=== PATIENT | male | born 1955 | race Caucasian/White ===

== ENCOUNTER 2016-09-25 19:26 | Inpatient (IN) | payer OTHER, MEDICAID ==
--- NOTE | 2016-09-25 19:46 | EDPHY ---
H & P Stated Complaint: per ems pt at [facility], [facility] fall, c/o L knee pain Time Seen by Provider: 09/25/16 19:44 HPI/ROS: CHIEF COMPLAINT: Left knee pain HISTORY OF PRESENT ILLNESS: The patient presents to the ED via paramedics for evaluation of left knee pain. The patient lives at a long-term psychiatric care facility and reportedly tripped and fell onto his left knee. The patient developed pain, swelling and ecchymosis over the left patella. The patient did not strike his head or lose consciousness. The patient denies any headache, neck pain, chest pain, back pain or abdominal pain. The patient reports a prior history of a left hip fracture. He complains only of pain over his left patella. The patient denies any history of recent illness. The patient denies specific complaints of fever, cough or congestion. REVIEW OF SYSTEMS: A comprehensive 10 point review of systems is otherwise negative aside from elements mentioned in the history of present illness. Source: Patient Exam Limitations: No limitations - Medical/Surgical History Hx Asthma: No Hx Chronic Respiratory Disease: Yes Hx Diabetes: No Hx Cardiac Disease: Yes Hx Renal Disease: No Hx Cirrhosis: No Hx Alcoholism: No Hx HIV/AIDS: No Hx Splenectomy or Spleen Trauma: No Other PMH: cva, tbi, bph, anxiety, chronic bronchitis, arthritis, L ankle contracture, hypertension - Social History Smoking Status: Current every day smoker - Physical Exam Exam: General Appearance: Elderly male, no acute distress Head: Atraumatic Eyes: Pupils equal, round, reactive ENT, Mouth: No hemotympanum, no oral trauma Neck: Nontender, trachea midline Respiratory: No chest wall tender, subcutaneous air, lungs clear bilaterally Cardiovascular: Regular rate and rhythm Abdomen: Abdomen is soft and nontender, pelvis stable Skin: No lacerations, No abrasion Back: No midline T/L/S pain Extremities: Tenderness to palpation, soft tissue swelling and hematoma noted over left patella, bilateral lower extremity edema, brace in the left upper extremity Neurological: Alert and oriented x2, likely baseline, 5/5 strength all 4 extremities, cranial nerves 2-12 intact Constitutional: Initial Vital Signs Temperature (C) 37.2 C 09/25/16 19:33 Heart Rate 61 09/25/16 19:33 Respiratory Rate 18 09/25/16 19:33 Blood Pressure 195/110 H 09/25/16 19:33 O2 Sat (%) 93 09/25/16 19:33 O2 Delivery Mode Room Air Allergies/Adverse Reactions: oxycodone HCl [From OxyContin] Allergy (Verified 09/25/16 19:43) tapentadol [From Nucynta] Allergy (Verified 09/25/16 19:43) verapamil [Verapamil] Allergy (Verified 09/25/16 19:43) HAYFEVER Allergy (Uncoded 09/25/16 19:43) POLLEN Allergy (Uncoded 09/25/16 19:43) Home Medications: Medication Instructions Recorded CARBAMAZEPINE [Carbamazepine Xr] 400 mg PO 05/07/10 Divalproex Sodium [Divalproex 500 mg PO 05/07/10 Sodium Er] Dulcolax 05/07/10 Fleets Enema [Fleet Enema] 133 ml UT 05/07/10 Gabapentin 100 mg PO 05/07/10 Gabapentin 100 mg PO 05/07/10 Guaifenesin [Robitussin] 10 ml PO PRN 05/07/10 Hydrocodone Bit/Acetaminophen 1 each PO PRN 05/07/10 [Vicodin 5-500 Tablet] IBUPROFEN 800 mg PO PRN 05/07/10 LORazepam [Ativan] 0.5 mg PO 05/07/10 Lactulose 10 gm PO 05/07/10 Lorazepam [Ativan] 0.75 mg PO 05/07/10 MAGNESIUM HYDROXIDE [Milk Of 400 mg PO 05/07/10 Magnesia] MORPHINE SULFATE [Avinza] 45 mg PO 05/07/10 Melatonin/Pyridoxine [Melatonin 3 1 each PO 05/07/10 Mg Tablet] Oxiconazole Nitrate [Oxistat] 0 ml TP 05/07/10 Oxygen-Air Delivery Systems 05/07/10 [OXYGEN] PERPHENAZINE [Perphenazine 4mg] 2 mg PO 05/07/10 POTASSIUM CHLORIDE 10 meq PO 05/07/10 PROPRANOLOL HCL 20 mg PO 05/07/10 Prochlorperazine Maleate 10 mg PO 05/07/10 [Compazine] Ramipril 1.25 mg PO 05/07/10 Sennosides/Docusate Sodium [Senna 1 each PO 05/07/10 S Tablet] Sertraline HCl [Zoloft] 100 mg PO DAILY 05/07/10 lamoTRIgine [Lamictal Xr] 100 mg PO 05/07/10 Medical Decision Making - Diagnostics EKG Interpretation: EKG: Complete interpretation has been separately recorded in the [facility] archive. Summary impression: Sinus rhythm, nonspecific changes noted Imaging Results: Left knee x-ray: Displaced patellar fracture, images reviewed by myself. ED Course/Re-evaluation: The patient presents to the ED with left knee trauma evidence with pain and swelling and decreased range of motion. The patient was taken for an x-ray which demonstrates a closed patellar fracture which is 100% displaced. The patient was placed in a knee immobilizer. The patient will require admission to the hospital for PT OT and Orthopedic surgery evaluation. Patient was admitted to the medicine service under the care of Dr. Jessee Head. I consulted with Dr. Tiffani Mac from Orthopedic surgery who will see the patient consultation. The patient did have screening laboratory sent. Differential Diagnosis: Differential diagnosis considered includes patella fracture, knee dislocation, prepatellar ecchymosis/contusion, neurovascular injury - Data Points Laboratory Results: Laboratory Results 09/25/16 20:14 09/25/16 20:14 09/25/16 09/25/16 09/25/16 20:14 20:14 20:14 WBC 8.73 10^3/uL 10^3/uL (3.80-9.50) RBC 5.02 10^6/uL 10^6/uL (4.40-6.38) Hgb 15.3 g/dL g/dL (13.7-17.5) Hct 45.0 % % (40.0-51.0) MCV 89.6 fL fL (81.5-99.8) MCH 30.5 pg pg (27.9-34.1) MCHC 34.0 g/dL g/dL (32.4-36.7) RDW 12.5 % % (11.5-15.2) Plt Count 157 10^3/uL 10^3/uL (150-400) MPV 9.7 fL fL (8.7-11.7) Neut % (Auto) 71.5 % % (39.3-74.2) Lymph % (Auto) 17.2 % % (15.0-45.0) Garvin % (Auto) 7.4 % % (4.5-13.0) Eos % (Auto) 3.0 % % (0.6-7.6) Baso % (Auto) 0.6 % % (0.3-1.7) Nucleat RBC Rel Count 0.0 % % (0.0-0.2) Absolute Neuts (auto) 6.24 10^3/uL 10^3/uL (1.70-6.50) Absolute Lymphs (auto) 1.50 10^3/uL 10^3/uL (1.00-3.00) Absolute Monos (auto) 0.65 10^3/uL 10^3/uL (0.30-0.80) Absolute Eos (auto) 0.26 10^3/uL 10^3/uL (0.03-0.40) Absolute Basos (auto) 0.05 10^3/uL 10^3/uL (0.02-0.10) Absolute Nucleated RBC 0.00 10^3/uL 10^3/uL (0-0.01) Immature Gran % 0.3 % % (0.0-1.1) Immature Gran # 0.03 10^3/uL 10^3/uL (0.00-0.10) PT 13.3 SEC SEC (12.0-15.0) INR 1.02 (0.83-1.16) APTT 26.9 SEC SEC (23.0-38.0) Sodium 129 mEq/L L mEq/L (134-144) Potassium 4.0 mEq/L mEq/L (3.5-5.2) Chloride 92 mEq/L L mEq/L (97-110) Carbon Dioxide 28 mEq/l mEq/l (22-31) Anion Gap 9 mEq/L mEq/L (8-16) BUN 10 mg/dL mg/dL (7-23) Creatinine 0.7 mg/dL mg/dL (0.7-1.3) Estimated GFR > 60 Glucose 101 mg/dL H mg/dL (70-100) Calcium 9.4 mg/dL mg/dL (8.5-10.4) Departure - Departure Disposition: [facility] Inpatient Acute Clinical Impression: Left patella fracture, Traumatic brain injury, Chronic hyponatremia Condition: Fair Referrals: Patient,NotPresent [Unknown] - As per Instructions
[2016-09-25 20:23] LABS: % IMMATURE GRANULYOCYTES 0.3 % (0.0-1.1); ABSOLUTE IMMATURE GRANULOCYTES 0.03 10^3/uL (0.00-0.10); ADD DIFF? NO; ADD MORPH? NO; ADD SCAN? NO; ATYPICAL LYMPHOCYTE FLAG 0 (0-99); FRAGMENT RBC FLAG 0 (0-99); HEMOGLOBIN 15.3 g/dL (13.7-17.5); LEFT SHIFT FLG 0 (0-99); LIPEMIA HEMOLYSIS FLAG 90 (0-99); MEAN CELL HEMOGLOBIN 30.5 pg (27.9-34.1); MEAN CELL VOLUME 89.6 fL (81.5-99.8); MEAN PLATELET VOLUME 9.7 fL (8.7-11.7); PLATELET CLUMPS FLAG 0 (0-99); PLATELET COUNT 157 10^3/uL (150-400); RED BLOOD CELL COUNT 5.02 10^6/uL (4.40-6.38); RED CELL DISTRIBUTION WIDTH 12.5 % (11.5-15.2)
--- NOTE | 2016-09-25 20:29 | CPEKG ---
Heart Rate: 64 RR Interval: 938 P-R Interval: 204 QRSD Interval: 100 QT Interval: 420 QTC Interval: 434 P [place]: 38 QRS [place]: 73 T Wave [place]: 82 EKG Severity - ABNORMAL ECG - EKG Impression: SINUS RHYTHM Electronically Signed By: Elias Slater 25-Sep-2016 21:02:27
[2016-09-25 20:33] LABS: ANION GAP 9 mEq/L (8-16); CALCIUM 9.4 mg/dL (8.5-10.4); CARBON DIOXIDE 28 mEq/l (22-31); CHLORIDE 92 mEq/L (97-110); CREATININE 0.7 mg/dL (0.7-1.3); GLOMERULAR FILTRATION RATE > 60; GLUCOSE 101 mg/dL (70-100); SODIUM 129 mEq/L (134-144)
[2016-09-25 20:38] LABS: INR 1.02 (0.83-1.16); PROTIME(PATIENT) 13.3 SEC (12.0-15.0)
[2016-09-25 20:39] LABS: APTT 26.9 SEC (23.0-38.0)
[2016-09-25] MEDS ORDERED: NICOTINE 14 MG/24 HR PATCH TD ONE (21:15)
[2016-09-25] MEDS ORDERED: LACTULOSE 10 GM PO SCH (21:15)
[2016-09-25] MEDS ORDERED: ZOLPIDEM TARTRATE 5 MG TAB PO PRN (21:26)
[2016-09-25] MEDS ORDERED: ONDANSETRON 4 MG/2 ML VIAL IVP PRN (21:26)
[2016-09-25] MEDS ORDERED: ALBUTEROL 3 ML DEYVIAL IH PRN (21:26)
[2016-09-25] MEDS ORDERED: ONDANSETRON DISINTEGRATING 4 MG TAB PO PRN (21:26)
--- NOTE | 2016-09-25 21:34 | PDGENHP ---
History and Physical History and Physical: CC:Left knee pain after a fall HISTORY: The history I have comes partly from speaking to the patient and partly from through the emergency room staff to go call from [facility]. It should be noted that the patient has a chronic mental health disorder that I do not have a specific diagnosis for but he does have some degree of psychosis here today and some details of his history may be potentially erroneous. This gentleman lives at [facility]. While there today he says someone open Door in front of him that he was not expecting and he fell forward landing on his left knee with immediate pain. he is brought into the emergency room as he was unable to walk and is found to have a transverse fracture with displacement of the left patella. There are no evidence of other injury is no other acute pain. He did not hit his head, was not having a fainting spell. Before this injury today he says he was in his usual health no recent fevers respiratory symptoms, chest pains, leg pains, digestive symptoms or other acute abnormalities. ROS: A comprehensive 10 system review revealed no other significant findings . He does deny any symptoms of heart or lung disease but does admit to having been a smoker. PAST MEDICAL HISTORY: He denies any history of thromboembolic disease or anesthetic complications. Mental health disorder with chronic psychosis, diagnosis unknown to me at this time anxiety disorder Tobacco abuse Traumatic brain injury Seizure disorder Prostatic hypertrophy Metacarpal fracture Patient states that he also had a hip fracture and a left arm injury in the but I do not have any records related to these He also states that he has had coronary disease and stents placed but he describes this in a way that does not really make sense, and we have no records that he has any history of heart disease with his primary care physician , and he is not on any cardiac medicines. FAMILY MEDICAL HISTORY: I am unable to get a consistent story from him about family medical history SOCIAL HISTORY: he is disabled by his mental health illness and his closed head injury. He lives at [facility]. It sounds like he smokes cigarettes. He tells me that he has been an alcoholic but sober for the past year. No street drugs. 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 MEDICATIONS: The patients list has been reconciled by our clinical pharmacist in the EMR. I have reviewed the list and ordered appropriate medicines. 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 This may be due to the discomfort of his knee injury or there may be other issues leading to this hypertension # Chronic mental health disorder with psychosis, appears to be at his baseline with some delusional thought processes at this time # Chronic tobacco abuser and his lungs sound to me like he probably has COPD but he says he does not have this diagnosis and he is not prescribed any inhaled medicines # Questionable history of heart disease. I have no records to detail any of this if he has had heart disease. There is some old visits from before 2009 in our system that I am not able to get to as the old record system is not available to me tonrosalie. He does not give any history of cardiac symptoms on review of systems and he is not in heart failure, so at this point there is no need for further cardiac evaluation other than in the EKG prior to proceeding with surgery. # hyponatremia, approximately euvolemic by examination, of uncertain duration or etiology. There are no old laboratory data available at this moment PLANS: - admission hospital -Dr. Mac has been consulted from Orthopedics for repair of his patella -Fall risk precautions -I have ordered some hydralazine for p.r.n. use for hypertension but will see how his blood pressure does after better pain control -Nicotine patches -DVT prophylaxis -We will make him NPO after midnight tonight in case he gets on the surgery schedule for tomorrow -Check urine sodium studies to see if this shows light on his hyponatremia - will attempt to get records from [facility] where he lives to see if they have any previous chemistry studies -Gentle hydration with saline overnight as he will be NPO and recheck sodium in the morning, I have reviewed the patient's case in detail with Dr. Landry Slater
[2016-09-25] MEDS: hydrALAZINE 25 MG TAB PO PRN (21:58)
[2016-09-25] MEDS ORDERED: HYDROmorphONE/DILAUDID 1 MG/ML SYR ONE (22:38)
[2016-09-25] MEDS: HYDROmorphONE/DILAUDID 1 MG/ML SYR IVP PRN (22:41)
[2016-09-26] MEDS: NS 1,000 ML IV SCH ×2 (00:07→22:14)
[2016-09-26] MEDS: CALCIUM CARB W/VIT D 500 MG TAB PO SCH ×4 (00:08→22:32)
[2016-09-26] MEDS: HYDROmorphONE/DILAUDID 2 MG TAB PO PRN ×4 (00:08→22:31)
[2016-09-26] MEDS: clonazePAM 0.5 MG TAB PO SCH ×3 (00:09→22:30)
[2016-09-26] MEDS: LACTULOSE 20 GM/30 ML UDCUP PO SCH ×3 (00:28→22:32)
[2016-09-26] MEDS: MENTHOL TP SCH ×4 (00:33→22:44)
[2016-09-26] MEDS: METHYL SALICYLATE TP SCH ×4 (00:33→22:44)
[2016-09-26 04:36] LABS: % IMMATURE GRANULYOCYTES 0.3 % (0.0-1.1); ABSOLUTE IMMATURE GRANULOCYTES 0.03 10^3/uL (0.00-0.10); ADD DIFF? NO; ADD MORPH? NO; ADD SCAN? NO; ATYPICAL LYMPHOCYTE FLAG 0 (0-99); FRAGMENT RBC FLAG 0 (0-99); HEMATOCRIT 44.3 % (40.0-51.0); LEFT SHIFT FLG 0 (0-99); LIPEMIA HEMOLYSIS FLAG 90 (0-99); MEAN CELL HEMOGLOBIN 30.4 pg (27.9-34.1); MEAN CELL HEMOGLOBIN CONCENTR. 33.9 g/dL (32.4-36.7); MEAN CELL VOLUME 89.7 fL (81.5-99.8); MEAN PLATELET VOLUME 9.2 fL (8.7-11.7); PLATELET CLUMPS FLAG 0 (0-99); PLATELET COUNT 175 10^3/uL (150-400); RED BLOOD CELL COUNT 4.94 10^6/uL (4.40-6.38); RED CELL DISTRIBUTION WIDTH 12.4 % (11.5-15.2)
[2016-09-26 05:03] LABS: ANION GAP 11 mEq/L (8-16); CALCIUM 9.4 mg/dL (8.5-10.4); CARBON DIOXIDE 28 mEq/l (22-31); CHLORIDE 95 mEq/L (97-110); CREATININE 0.6 mg/dL (0.7-1.3); GLOMERULAR FILTRATION RATE > 60; GLUCOSE 103 mg/dL (70-100); POTASSIUM 3.9 mEq/L (3.5-5.2); SODIUM 134 mEq/L (134-144)
[2016-09-26] MEDS: IPRATROPIUM/ALBUTEROL 3 ML DEYVIAL IH SCH ×4 (08:43→21:27)
[2016-09-26] MEDS ORDERED: POTASSIUM CHLORIDE PO SCH (09:00)
[2016-09-26] MEDS ORDERED: SODIUM CL PO SCH (09:00)
[2016-09-26] MEDS ORDERED: NON-FORMULARY NEW DRUG (Propranolol Hcl [Inderal Xl] 80 MG) PO SCH (09:00)
[2016-09-26] MEDS: PROPRANOLOL SR 80 MG CAP PO SCH (09:27)
[2016-09-26] MEDS: LISINOPRIL 10 MG TAB PO SCH (09:27)
[2016-09-26] MEDS: OLANZapine 10 MG TAB PO SCH (09:27)
[2016-09-26] MEDS: DULoxetine 60 MG CAP PO SCH (09:27)
[2016-09-26] MEDS: ENOXAPARIN 40 MG/0.4 ML SYR SC SCH (09:29)
[2016-09-26] MEDS: SENNOSIDES/DOCUSATE SODIUM TAB PO SCH ×2 (09:29→22:31)
[2016-09-26] MEDS: ACETAMINOPHEN 325 MG TAB PO PRN ×2 (09:44→14:46)
[2016-09-26] MEDS: hydrALAZINE 25 MG TAB PO PRN (09:45)
--- NOTE | 2016-09-26 12:23 | HOSPPROG ---
Hospitalist Progress Note Assessment/Plan: 61y male with mechanical fall. First encounter, chart reviewed. # Transfers left patellar fracture will need repair Dr Mac to repair. pt NPO # Hypertension, severe. This may be due to the discomfort of his knee injury or there may be other issues leading to this hypertension will cont to follow elevated today # Chronic mental health disorder with psychosis, appears to be at his baseline with some delusional thought processes at this time will return to [facility] cont home meds # Chronic tobacco abuser with probably has COPD cont support # hyponatremia, approximately euvolemic resolved with hydration # DVT prophylaxis defer to postop setting #Dispo will return to uribe vis when able follow labs and vs Subjective: Arousable. C/O knee pain. Objective: Vital Signs Temp Pulse Resp BP Pulse Ox 36.8 C 65 16 143/84 H 95 09/26/16 11:20 09/26/16 11:20 09/26/16 11:20 09/26/16 11:20 09/26/16 11:38 Laboratory Results 09/26/16 04:27 09/26/16 04:27 09/25/16 09/26/16 09/27/16 05:59 05:59 05:59 Intake Total 420 Output Total 700 700 Balance -280 -700 PT 13.3 SEC (12.0-15.0) 09/25/16 20:14 INR 1.02 (0.83-1.16) 09/25/16 20:14 - Physical Exam Constitutional: no apparent distress, appears nourished, uncomfortable Eyes: PERRL, anicteric sclera, EOMI Ears, Nose, Mouth, Throat: moist mucous membranes, hearing normal, ears appear normal Cardiovascular: regular rate and rhythym, No JVD, No edema Respiratory: no respiratory distress, no rales or rhonchi, reduced air movement Gastrointestinal: normoactive bowel sounds, No tenderness, No ascites Skin: warm, normal color, No erythema Musculoskeletal: pain with ROM, muscular tenderness, generalized weakness Psychiatric: not anxious, not encephalopathic, poor insight, poor judgement ICD10 Worksheet Patient Problems: Problems Problem Status Onset Left patella fracture Acute Traumatic brain injury Acute Chronic hyponatremia Acute
[2016-09-26] MEDS ORDERED: BUPIVACAINE/EPI 0.5% 30 ML SDV ONE (17:36)
[2016-09-26] MEDS ORDERED: POLYMYXIN B SULFATE 500,000 UNIT/10 ML SYR IRR ONE (17:37)
[2016-09-26] MEDS ORDERED: BACITRACIN 50,000 UNITS/10 ML SYR IRR ONE (17:37)
--- NOTE | 2016-09-26 17:42 | PDANEPAE ---
ANE History of Present Illness Patellar fracture ANE Past Medical History - Cardiovascular History Hx Hypertension: Yes - Pulmonary History Hx COPD: Yes Hx Oxygen in Use at Home: No Hx Sleep Apnea: No Sleep Apnea Screening Result - Last Documented: Positive - Endocrine History Hx Diabetes: No - Neurological & Psychiatric Hx Hx Neurological and Psychiatric Disorders: Yes ANE Review of Systems - Systems Neurological: Reports: seizure, other (History of brain injury) ANE Patient History - Allergies Allergies/Adverse Reactions: oxycodone HCl [From OxyContin] Allergy (Verified 09/25/16 19:43) tapentadol [From Nucynta] Allergy (Verified 09/25/16 19:43) verapamil [Verapamil] Allergy (Verified 09/25/16 19:43) HAYFEVER Allergy (Uncoded 09/25/16 19:43) POLLEN Allergy (Uncoded 09/25/16 19:43) - Home Medications Home medications: home medication list seen and reviewed Home Medications: Calcium Carb W/Vit D [Calcium Carb W/Vit D 500/200 (*)] 500 mg PO TID 09/25/16 [ Last Taken 09/25/16] DULoxetine [Cymbalta 60 MG (*)] 60 mg PO DAILY 09/25/16 [Last Taken 09/25/16] Ergocalciferol [Vitamin D2 (*)] 50,000 unit PO Q30D 09/25/16 [Last Taken ] Lactulose [Constulose] 10 gm PO BID 09/25/16 [Last Taken 09/25/16] Lisinopril [Zestril 10 mg (*)] 10 mg PO DAILY 09/25/16 [Last Taken 09/25/16] Methyl Salicylate/Menthol [Muscle Rub Cream] 1 merle TP TID 09/25/16 [Last Taken 09/25/16] OLANZapine [Zyprexa] 15 mg PO DAILY 09/25/16 [Last Taken 09/25/16] Quincy-3 Fatty Acids [Fish Oil 1000 mg (*)] 2,000 mg PO HS 09/25/16 [Last Taken 09/24/16] Propranolol HCl [Inderal Xl] 80 mg PO DAILY 09/25/16 [Last Taken 09/25/16] Sennosides/Docusate Sodium [Senna-Docusate Sodium Tablet] 2 each PO BID [Last Taken 09/25/16] Sodium Cl/Potassium Chloride [THERMOTABS TABLET] 1 each PO BID 09/25/16 [Last Taken 09/25/16] Tamsulosin HCl [Flomax 0.4 MG (*)] 0.4 mg PO HS 09/25/16 [Last Taken 09/24/16] carBAMazepine ER [Carbatrol (*)] 200 mg PO HS 09/25/16 [Last Taken 09/24/16] clonazePAM [Klonopin (*)] 0.5 mg PO BID 09/25/16 [Last Taken 09/25/16 09:00] - NPO status NPO Since - Liquids (Date): 09/26/16 NPO Since - Liquids (Time): 00:01 NPO Since - Solids (Date): 09/26/16 NPO Since - Solids (Time): 00:01 - Anes Hx Anes Hx: no prior problems - Smoking Hx Smoking Status: Current every day smoker ANE Labs/Vital Signs - Labs Result Diagrams: 09/26/16 04:27 09/26/16 04:27 - Vital Signs Blood Pressure: 137/74 Heart Rate: 64 Respiratory Rate: 16 O2 Sat (%): 93 Height: 172.72 cm Weight: 90.945 kg ANE Physical Exam - Airway Neck exam: decreased ROM Mallampati Score: Class 2 Mouth exam: dentures - Pulmonary Pulmonary: inspiratory crackles - Cardiovascular Cardiovascular: regular rate and rhythym - ASA Status ASA Status: III, E ANE Anesthesia Plan Anesthesia Plan: GA w LMA (Pt's DRN status discussed with over phone. There is a signed no CPR on the chart. 's understanding is that we will treat any cardiac issues caused by anesthesiabut will not do CPR or aggressive resuscitation.)
[2016-09-26] MEDS ORDERED: ceFAZolin 2 GM/DEXTROSE 100 ML IV ONE (18:05)
--- NOTE | 2016-09-26 18:06 | PDHPUP ---
History & Physical Update H&P update statement: This history and physical update is based on an assessment of the patient which was completed after admission or registration (within 24 hours), but prior to the surgery/procedure. H&P update: H&P reviewed & patient examined, no change in patient's condition since H&P completed
[2016-09-26] MEDS ORDERED: fentaNYL 100 MCG/2 ML INJ ONE (18:24)
[2016-09-26] MEDS ORDERED: PROPOFOL 200 MG/20 ML VIAL ONE (18:24)
[2016-09-26] MEDS ORDERED: LR 1,000 ML IV SCH ×2 (18:30→20:00)
[2016-09-26] MEDS ORDERED: fentaNYL 100 MCG/2 ML INJ IVP PRN (18:59)
[2016-09-26] MEDS ORDERED: ONDANSETRON 4 MG/2 ML VIAL IVP PRN (18:59)
[2016-09-26] MEDS ORDERED: NALOXONE HCL 0.4 MG/ML INJ IVP PRN (18:59)
[2016-09-26] MEDS ORDERED: epHEDrine SULFATE 10 MG/ML SYR ONE (19:11)
[2016-09-26] MEDS ORDERED: ONDANSETRON 4 MG/2 ML VIAL ONE (19:34)
[2016-09-26] MEDS ORDERED: PROMETHAZINE HCL 25 MG SUPPR PR PRN (19:52)
[2016-09-26] MEDS ORDERED: METOCLOPRAMIDE 10 MG/2 ML VIAL IVP PRN (19:52)
[2016-09-26] MEDS ORDERED: POLYETHYLENE GLYCOL 3350 17 GM PKT PO PRN (19:52)
[2016-09-26] MEDS ORDERED: DIPHENOXYLATE/ATROPINE LOMOTIL 1 TAB PO PRN (19:52)
[2016-09-26] MEDS ORDERED: TEMAZEPAM 15 MG CAP PO PRN (19:52)
[2016-09-26] MEDS ORDERED: PROMETHAZINE HCL 25 MG/ML INJ IVP PRN (19:52)
[2016-09-26] MEDS ORDERED: PHARMACY PAIN CONSULT 1 EA MISC PRN (19:52)
[2016-09-26] MEDS ORDERED: diphenhydrAMINE 25 MG CAP PO PRN (19:52)
--- NOTE | 2016-09-26 19:52 | POSTOPPROG ---
Post Op Note Date of Operation: 09/26/16 Surgeon: Tiffani Mac Anesthesiologist: nikita Anesthesia: GET(General Endotracheal) Pre-op Diagnosis: l patella fx Procedure: orif l patella with fluoro Inf/Abcess present in the surg proc area at time of surgery?: No Depth: Deep Incisional (Fascial) EBL: 100-500
--- NOTE | 2016-09-26 19:52 | GCON ---
[f rep st] CONSULTATION DATE OF CONSULTATION: 09/26/2016 CURRENT COMPLAINT: Left leg weakness. HISTORY OF PRESENT ILLNESS: The patient is a 61-year-old male, who is in a chronic health care faci lity secondary to a brain injury. He does not remember the exact mechanism of fall, but notes that he fell at the care facility, landed directly on the knee, had inability to walk afterwards, was see n in the emergency room, diagnosed with a displaced patellar fracture. He was admitted secondary to the care facility stating that they had difficulty being able to take care of him afterwards. Once it was decided that he would be staying in the hospital instead of going home, it was decided to do surgery while he remained an inpatient. PHYSICAL EXAM: Patient is grossly neurologically intact into the dorsal, lateral, and plantar porti ons of the foot. He has no active extension across the knee and he has a palpable gap at the anteri or portion of the knee. IMAGING: X-ray exam reveals a displaced fracture of the patella. ASSESSMENT AND PLAN: The patient is status post left patella fracture. Discussion was had with the patient's , secondary to the patient's lack of understanding, and she agrees to allow him to perez ve surgery in order to fix the patella. /[id number]/MODL
--- NOTE | 2016-09-26 20:06 | POSTANESTH ---
Post Anesthetic Evaluation Cardiovascular Status: Normal, Stable Respiratory Status: Normal, Stable Level of Consciousness/Mental Status: Other, See Comment (Pre-op pt confused and not oriented) Pain Control: Adequate, Prn Tx Ordered Nausea/Vomiting Control: Adequate, Prn Tx Ordered Complications Possibly Related to Anesthesia: None Noted
--- NOTE | 2016-09-26 20:37 | GOP ---
[f rep st] OPERATIVE REPORT DATE OF OPERATION: 09/26/2016 SURGEON: Tiffani Mac MD ANESTHESIA: Endotracheal intubation. PREOPERATIVE DIAGNOSIS: Left patellar fracture. POSTOPERATIVE DIAGNOSIS: Left patellar fracture. PROCEDURE PERFORMED: Open reduction internal fixation of left patella with fluoroscopy. FINDINGS: INDICATIONS: This is a 61-year-old male, who fell at his nursing care facility. He was seen in the emergency room, diagnosed with a patellar fracture. He was admitted for pain control and psychosoc ial reasons. He was brought to the operating room as soon as it was clear that he was not going to be sent back to his care facility. DESCRIPTION OF PROCEDURE: The patient was brought to the operating room after the left side had bee n identified as the correct side by the patient, nurse and physician. Once in the operating room, h e was placed under general anesthesia using endotracheal intubation once asleep. A tourniquet was pl aced around the upper portion of the left thigh, and the left lower extremity sterilely prepped and draped in usual fashion using GSI solution. Once prepped and draped, limb was exsanguinated, tourniq uet inflated to 250 mmHg. Linear incision was made on the anterior portion of the knee extending fr om the tibial tubercle to just past the superior pole of the patella. Sharp dissection was carried down through the skin and subcutaneous layers until reaching the patellar retinaculum which had been torn, allowing the blood to come out from the intraarticular portion of the knee. The knee was then thoroughly irritated with antibiotic solution in order to get rid of the blood clots and blood seen within the suprapatellar pouch and the medial and lateral gutters. The hematoma off the end of the fracture fragments were cleaned off and thoroughly irrigated. The bone was then reduced and held t ogether with a pointed reduction clamp. Once in place, 2 sets of threaded K-wires were passed acros s the patella in a [id number] direction. Position was checked under fluoroscopy. Once note d to be in proper position, the wires were measured for length and then overdrilled with a 2.5 mm ca nnulated drill. Once in place, the appropriate 3.5 mm partially-threaded screws were placed over the guidewires. Once catching adequate bone, the guidewires were removed, at which point 18-gauge wire was woven through the screw sites in a fashion to create a figure-of-8 cerclage technique with the 1 8-gauge wire. Two loops were made with the wire. They were cinched tight. Once tightened, position was checked under fluoroscopy and noted to have good position of the hardware and cinching of the ac tual fracture itself. The wires were cut short, were bent to be sitting as close to the bone as pos sible. The wound was again thoroughly irrigated with antibiotic solution, was closed in layers to i nclude 0 Vicryl suture for the knee retinaculum and the paratenon overlying the patella, 0 Vicryl an d 2-0 Vicryl suture for subcutaneous layers, and a 3-0 V-Loc suture in a running subcuticular stitch for the skin. Tourniquet was released at 48 minutes. 20 cc of Marcaine was infused into the knee joint and around the actual patella itself. The wound was then dressed with Steri-Strips, Xeroform, 4 x 4's, Webril. The leg was completely undraped in the operating room. Tourniquet removed from the thigh and an Seymour wrap placed around the knee. The left lower extremity was then placed within a zenon g-leg immobilizer locked at 0 degrees. The patient was then woken up, extubated, transferred onto a stretcher, and sent to recovery room in good condition. TOURNIQUET TIME: 48 minutes. /[id number]/MODL
[2016-09-26] MEDS: ceFAZolin 2 GM/DEXTROSE 100 ML IV SCH (22:14)
[2016-09-26] MEDS: FAMOTIDINE 20 MG TAB PO SCH (22:29)
[2016-09-26] MEDS: ACETAMINOPHEN 325 MG TAB PO SCH (22:30)
[2016-09-26] MEDS: carBAMazepine ER 200 MG CAP PO SCH (22:31)
[2016-09-26] MEDS: OMEGA-3 FATTY ACIDS 1,000 MG CAP PO SCH (22:31)
[2016-09-26] MEDS: TAMSULOSIN HCL 0.4 MG CAP PO SCH (22:32)
[2016-09-26] MEDS: SODIUM CL PO SCH (22:44)
[2016-09-26] MEDS: POTASSIUM CHLORIDE PO SCH (22:44)
[2016-09-27] MEDS: traMADol 50 MG TAB PO SCH ×5 (00:20→23:48)
[2016-09-27] MEDS: HYDROmorphONE/DILAUDID 1 MG/ML SYR IVP PRN (00:23)
[2016-09-27] MEDS: ACETAMINOPHEN 325 MG TAB PO SCH ×7 (03:51→23:11)
[2016-09-27] MEDS: HYDROmorphONE/DILAUDID 2 MG TAB PO PRN ×4 (03:56→20:14)
[2016-09-27 04:58] LABS: HEMATOCRIT 42.1 % (40.0-51.0)
[2016-09-27] MEDS: ceFAZolin 2 GM/DEXTROSE 100 ML IV SCH (05:24)
[2016-09-27] MEDS: IPRATROPIUM/ALBUTEROL 3 ML DEYVIAL IH SCH ×4 (06:28→20:41)
[2016-09-27] MEDS: PROPRANOLOL SR 80 MG CAP PO SCH (08:50)
[2016-09-27] MEDS: FAMOTIDINE 20 MG TAB PO SCH ×2 (08:50→20:08)
[2016-09-27] MEDS: SENNOSIDES/DOCUSATE SODIUM TAB PO SCH ×2 (08:50→20:07)
[2016-09-27] MEDS: CALCIUM CARB W/VIT D 500 MG TAB PO SCH ×3 (08:50→20:07)
[2016-09-27] MEDS: clonazePAM 0.5 MG TAB PO SCH ×2 (08:51→20:09)
[2016-09-27] MEDS: OLANZapine 10 MG TAB PO SCH (08:51)
[2016-09-27] MEDS: DULoxetine 60 MG CAP PO SCH (08:51)
[2016-09-27] MEDS: LISINOPRIL 10 MG TAB PO SCH (08:53)
[2016-09-27] MEDS: ENOXAPARIN 40 MG/0.4 ML SYR SC SCH (08:54)
[2016-09-27] MEDS: LACTULOSE 20 GM/30 ML UDCUP PO SCH ×2 (08:54→20:13)
[2016-09-27] MEDS: POTASSIUM CHLORIDE PO SCH ×2 (10:27→20:13)
[2016-09-27] MEDS: MENTHOL TP SCH ×3 (10:27→20:15)
[2016-09-27] MEDS: METHYL SALICYLATE TP SCH ×3 (10:27→20:15)
[2016-09-27] MEDS: SODIUM CL PO SCH ×2 (10:27→20:13)
[2016-09-27] MEDS: NICOTINE 14 MG/24 HR PATCH TD SCH (10:34)
[2016-09-27] MEDS ORDERED: NICOTINE POLACRILEX 2 MG GUM B PRN (11:13)
[2016-09-27] MEDS ORDERED: LISINOPRIL 10 MG TAB PO ONE (11:14)
[2016-09-27] MEDS ORDERED: LISINOPRIL 10 MG TAB PO SCH (11:14)
--- NOTE | 2016-09-27 11:19 | HOSPPROG ---
Hospitalist Progress Note Assessment/Plan: 61y male PMH unspecified psychosis, tobacco abuse, htn, presents with mechanical fall 09/25/16. Found to have L patellar fx. First encounter, chart reviewed. # Transverse left patellar fracture s/p ORIF with Dr. Mac PT/OT and pain management # Hypertension, severe. This may be due to the discomfort of his knee injury or there may be other issues leading to this hypertension will increase Lisinopril # Chronic mental health disorder with psychosis, appears to be at his baseline with some delusional thought processes at this time will return to [place] at OR cont home meds # Chronic tobacco abuser with probably has COPD/hypoxia cont support check CXR to r/o pna # hyponatremia, approximately euvolemic resolved with hydration/ will stop IVF now # DVT prophylaxis defer to postop setting #Dispo will return to [facility] when able follow labs and vs start DVT ppx when permitted by ortho increase Lisinopril check CXR Subjective: Reports 10/10 knee pain. Breathing feels. Objective: Vital Signs Temp Pulse Resp BP Pulse Ox 98.8 F 83 16 149/103 H 88 L 09/27/16 07:40 09/27/16 08:50 09/27/16 07:40 09/27/16 08:53 09/27/16 07:40 Laboratory Results 09/27/16 04:46 09/26/16 04:27 09/26/16 09/27/16 09/28/16 05:59 05:59 05:59 Intake Total 420 1300 Output Total 700 1655 550 Balance -280 -355 -550 PT 13.3 SEC (12.0-15.0) 09/25/16 20:14 INR 1.02 (0.83-1.16) 09/25/16 20:14 - Physical Exam Constitutional: no apparent distress, appears nourished, obese Ears, Nose, Mouth, Throat: moist mucous membranes Cardiovascular: regular rate and rhythym, no murmur, rub, or gallop Respiratory: no respiratory distress, rhonchi (in anterior lomeli/ poor inspiratory effort on physical exam) Gastrointestinal: normoactive bowel sounds, soft, non-tender abdomen Skin: warm, normal color Musculoskeletal: other (wearing compressive sleeve on R forearm) Psychiatric: anxious ICD10 Worksheet Patient Problems: Problems Problem Status Onset Left patella fracture Acute Traumatic brain injury Acute Chronic hyponatremia Acute
--- NOTE | 2016-09-27 13:51 | SOAPPROG ---
SOAP Progress Note Assessment/Plan: Assessment: Plan: Subjective: states his knee is sore and can't ewalk dressing C&D with foot NVI cont P^YT await placement Objective: Vital Signs Temp Pulse Resp BP Pulse Ox 37.1 C 69 20 135/83 H 92 09/27/16 07:40 09/27/16 12:19 09/27/16 12:19 09/27/16 12:33 09/27/16 12:19 Laboratory Results 09/27/16 04:46 09/26/16 04:27 09/26/16 09/27/16 09/28/16 05:59 05:59 05:59 Intake Total 420 1300 Output Total 700 1655 550 Balance -280 -355 -550 PT 13.3 SEC (12.0-15.0) 09/25/16 20:14 INR 1.02 (0.83-1.16) 09/25/16 20:14 ICD10 Worksheet Patient Problems: Problems Problem Status Onset Chronic hyponatremia Acute Left patella fracture Acute Traumatic brain injury Acute
[2016-09-27] MEDS: ASPIRIN EC 325 MG TAB PO SCH (15:21)
[2016-09-27] MEDS ORDERED: NS 1,000 ML IV SCH (17:30)
[2016-09-27] MEDS: OMEGA-3 FATTY ACIDS 1,000 MG CAP PO SCH (20:07)
[2016-09-27] MEDS: carBAMazepine ER 200 MG CAP PO SCH (20:08)
[2016-09-27] MEDS: TAMSULOSIN HCL 0.4 MG CAP PO SCH (20:09)
[2016-09-28] MEDS: traMADol 50 MG TAB PO SCH ×3 (04:38→17:01)
[2016-09-28] MEDS: ACETAMINOPHEN 325 MG TAB PO SCH ×4 (04:38→17:00)
[2016-09-28 05:19] LABS: % IMMATURE GRANULYOCYTES 0.4 % (0.0-1.1); ABSOLUTE IMMATURE GRANULOCYTES 0.04 10^3/uL (0.00-0.10); ADD DIFF? NO; ADD MORPH? NO; ADD SCAN? NO; ATYPICAL LYMPHOCYTE FLAG 10 (0-99); FRAGMENT RBC FLAG 0 (0-99); HEMATOCRIT 35.7 % (40.0-51.0); HEMOGLOBIN 11.9 g/dL (13.7-17.5); LEFT SHIFT FLG 0 (0-99); LIPEMIA HEMOLYSIS FLAG 80 (0-99); MEAN CELL HEMOGLOBIN 30.5 pg (27.9-34.1); MEAN CELL HEMOGLOBIN CONCENTR. 33.3 g/dL (32.4-36.7); MEAN CELL VOLUME 91.5 fL (81.5-99.8); PLATELET CLUMPS FLAG 0 (0-99); PLATELET COUNT 136 10^3/uL (150-400); RED CELL DISTRIBUTION WIDTH 12.5 % (11.5-15.2)
[2016-09-28 05:27] LABS: ANION GAP 9 mEq/L (8-16); CALCIUM 8.8 mg/dL (8.5-10.4); CARBON DIOXIDE 29 mEq/l (22-31); CHLORIDE 95 mEq/L (97-110); CREATININE 0.5 mg/dL (0.7-1.3); GLOMERULAR FILTRATION RATE > 60; GLUCOSE 95 mg/dL (70-100); POTASSIUM 4.3 mEq/L (3.5-5.2); SODIUM 133 mEq/L (134-144)
[2016-09-28] MEDS: IPRATROPIUM/ALBUTEROL 3 ML DEYVIAL IH SCH ×4 (06:01→21:39)
[2016-09-28] MEDS: SENNOSIDES/DOCUSATE SODIUM TAB PO SCH ×2 (08:34→22:08)
[2016-09-28] MEDS: ENOXAPARIN 40 MG/0.4 ML SYR SC SCH (08:34)
[2016-09-28] MEDS: LACTULOSE 20 GM/30 ML UDCUP PO SCH ×2 (08:34→22:05)
[2016-09-28] MEDS: NICOTINE 14 MG/24 HR PATCH TD SCH (08:34)
[2016-09-28] MEDS: FAMOTIDINE 20 MG TAB PO SCH ×2 (08:35→22:06)
[2016-09-28] MEDS: OLANZapine 10 MG TAB PO SCH (08:35)
[2016-09-28] MEDS: ASPIRIN EC 325 MG TAB PO SCH (08:35)
[2016-09-28] MEDS: CALCIUM CARB W/VIT D 500 MG TAB PO SCH ×3 (08:35→22:08)
[2016-09-28] MEDS: DULoxetine 60 MG CAP PO SCH (08:38)
[2016-09-28] MEDS: clonazePAM 0.5 MG TAB PO SCH ×2 (08:38→22:06)
[2016-09-28] MEDS: oxyCODONE IR 5 MG TAB PO PRN ×2 (08:39→15:18)
[2016-09-28] MEDS: PROPRANOLOL SR 80 MG CAP PO SCH (08:51)
[2016-09-28] MEDS: LISINOPRIL 10 MG TAB PO SCH (08:58)
[2016-09-28] MEDS: POTASSIUM CHLORIDE PO SCH ×2 (09:38→22:18)
[2016-09-28] MEDS: METHYL SALICYLATE TP SCH ×3 (09:38→22:18)
[2016-09-28] MEDS: MENTHOL TP SCH ×3 (09:38→22:18)
[2016-09-28] MEDS: SODIUM CL PO SCH ×2 (09:38→22:18)
--- NOTE | 2016-09-28 13:12 | HOSPPROG ---
Hospitalist Progress Note Assessment/Plan: 61y male PMH unspecified psychosis, tobacco abuse, htn, presents with mechanical fall 09/25/16. Found to have L patellar fx. First encounter, chart reviewed. # Transverse left patellar fracture s/p ORIF with Dr. Mac PT/OT and pain management # Hypertension, Improved/ back on home Lisinopril dose # Chronic mental health disorder with psychosis, appears to be at his baseline with some delusional thought processes at this time will likely return to [place] at [place] but checking with them now cont home meds # Chronic tobacco abuser with probably has COPD/hypoxia cont support CXR without any e/o pna # hyponatremia, approximately euvolemic resolved with hydration/ will follow # urinary retention pt has needed to be straight cathed trying to avoid english placement back on home Flomax # DVT prophylaxis Dr. Mac was agreeable to ASA initiation #Dispo checking to see if he may return to [place] Subjective: Reports no pain currently. Feels breathing is normal. Objective: Vital Signs Temp Pulse Resp BP Pulse Ox 99.2 F 74 18 117/67 92 09/28/16 12:00 09/28/16 12:20 09/28/16 12:20 09/28/16 12:00 09/28/16 12:20 Laboratory Results 09/28/16 04:56 09/28/16 04:56 09/27/16 09/28/16 09/29/16 05:59 05:59 05:59 Intake Total 1300 900 Output Total 1655 2200 Balance -355 -1300 PT 13.3 SEC (12.0-15.0) 09/25/16 20:14 INR 1.02 (0.83-1.16) 09/25/16 20:14 - Physical Exam Constitutional: no apparent distress, appears nourished Eyes: anicteric sclera Ears, Nose, Mouth, Throat: moist mucous membranes Cardiovascular: regular rate and rhythym Respiratory: no respiratory distress Skin: warm, other (L leg with bandage) Psychiatric: not anxious ICD10 Worksheet Patient Problems: Problems Problem Status Onset Chronic hyponatremia Acute Left patella fracture Acute Traumatic brain injury Acute
[2016-09-28] MEDS: NICOTINE 21 MG/24 HR PATCH TD SCH (15:41)
[2016-09-28] MEDS: MAGNESIUM HYDROXIDE 30 ML UDCUP PO PRN (17:22)
[2016-09-28] MEDS: HYDROmorphONE/DILAUDID 2 MG TAB PO PRN (22:07)
[2016-09-28] MEDS: carBAMazepine ER 200 MG CAP PO SCH (22:07)
[2016-09-28] MEDS: TAMSULOSIN HCL 0.4 MG CAP PO SCH (22:08)
[2016-09-28] MEDS: OMEGA-3 FATTY ACIDS 1,000 MG CAP PO SCH (22:08)
[2016-09-29] MEDS: ACETAMINOPHEN 325 MG TAB PO SCH ×4 (00:13→18:21)
[2016-09-29] MEDS: traMADol 50 MG TAB PO SCH ×4 (00:13→18:21)
[2016-09-29] MEDS: IPRATROPIUM/ALBUTEROL 3 ML DEYVIAL IH SCH ×4 (06:15→19:18)
[2016-09-29] MEDS: MAGNESIUM HYDROXIDE 30 ML UDCUP PO PRN (09:19)
[2016-09-29] MEDS: ENOXAPARIN 40 MG/0.4 ML SYR SC SCH (09:20)
[2016-09-29] MEDS: LACTULOSE 20 GM/30 ML UDCUP PO SCH ×2 (09:21→20:48)
[2016-09-29] MEDS: BISACODYL 10 MG SUPP PR PRN (09:21)
[2016-09-29] MEDS: SENNOSIDES/DOCUSATE SODIUM TAB PO SCH ×2 (09:21→20:50)
[2016-09-29] MEDS: NICOTINE 21 MG/24 HR PATCH TD SCH (09:22)
[2016-09-29] MEDS: HYDROmorphONE/DILAUDID 2 MG TAB PO PRN ×2 (09:26→18:39)
[2016-09-29] MEDS: LISINOPRIL 10 MG TAB PO SCH (09:27)
[2016-09-29] MEDS: clonazePAM 0.5 MG TAB PO SCH ×2 (09:27→20:48)
[2016-09-29] MEDS: DULoxetine 60 MG CAP PO SCH (09:27)
[2016-09-29] MEDS: FAMOTIDINE 20 MG TAB PO SCH ×2 (09:27→20:48)
[2016-09-29] MEDS: OLANZapine 10 MG TAB PO SCH (09:27)
[2016-09-29] MEDS: ASPIRIN EC 325 MG TAB PO SCH (09:28)
[2016-09-29] MEDS: CALCIUM CARB W/VIT D 500 MG TAB PO SCH ×3 (09:28→20:47)
[2016-09-29] MEDS: MENTHOL TP SCH ×3 (09:56→20:49)
[2016-09-29] MEDS: SODIUM CL PO SCH ×2 (09:56→20:51)
[2016-09-29] MEDS: METHYL SALICYLATE TP SCH ×3 (09:56→20:49)
[2016-09-29] MEDS: POTASSIUM CHLORIDE PO SCH ×2 (09:56→20:51)
--- NOTE | 2016-09-29 10:07 | HOSPPROG ---
Hospitalist Progress Note Assessment/Plan: 61y male PMH unspecified psychosis, tobacco abuse, htn, presents with mechanical fall 09/25/16. Found to have L patellar fx. First encounter, chart reviewed. # Transverse left patellar fracture s/p ORIF with Dr. Mac PT/OT and pain management # Hypertension, Improved/ back on home Lisinopril dose 138/85 # Chronic mental health disorder with psychosis, appears to be at his baseline will likely return to [facility] home meds # Chronic tobacco abuser with probably has COPD/hypoxia CXR without any e/o pna # hyponatremia, approximately euvolemic resolved with hydration/ will follow # urinary retention pt has needed to be straight cath multiple time back on home Flomax may need english placed in and can f/u with urology #constipation: bowel protocol trial of mag citrate will get an abd xray/ abdomen quite distended # DVT prophylaxis Dr. Mac was agreeable to ASA initiation Subjective: Omkar has no complaints. Objective: Vital Signs Temp Pulse Resp BP Pulse Ox 36.5 C 74 16 138/85 H 92 09/29/16 07:24 09/29/16 07:24 09/29/16 07:24 09/29/16 09:27 09/29/16 07:24 Laboratory Results 09/28/16 04:56 09/28/16 04:56 09/28/16 09/29/16 09/30/16 05:59 05:59 05:59 Intake Total 900 350 Output Total 2200 700 Balance -1300 -700 350 PT 13.3 SEC (12.0-15.0) 09/25/16 20:14 INR 1.02 (0.83-1.16) 09/25/16 20:14 - Physical Exam Constitutional: no apparent distress, appears nourished, not in pain Eyes: PERRL Ears, Nose, Mouth, Throat: hearing normal Cardiovascular: regular rate and rhythym Respiratory: no respiratory distress Gastrointestinal: distension, No normoactive bowel sounds (hypoactive) Skin: warm Musculoskeletal: no muscle tenderness Neurologic: AAOx3 Psychiatric: interacting appropriately, not anxious ICD10 Worksheet Patient Problems: Problems Problem Status Onset Chronic hyponatremia Acute Left patella fracture Acute Traumatic brain injury Acute
[2016-09-29] MEDS ORDERED: MAGNESIUM CITRATE 300 ML BOTTLE PO ONE (11:04)
[2016-09-29] MEDS: carBAMazepine ER 200 MG CAP PO SCH (20:47)
[2016-09-29] MEDS: OMEGA-3 FATTY ACIDS 1,000 MG CAP PO SCH (20:50)
[2016-09-29] MEDS: TAMSULOSIN HCL 0.4 MG CAP PO SCH (20:51)
[2016-09-30] MEDS: ACETAMINOPHEN 325 MG TAB PO SCH ×2 (00:13→06:07)
[2016-09-30] MEDS: traMADol 50 MG TAB PO SCH ×4 (00:13→17:57)
[2016-09-30] MEDS: IPRATROPIUM/ALBUTEROL 3 ML DEYVIAL IH SCH ×3 (05:58→16:55)
[2016-09-30] MEDS: ENOXAPARIN 40 MG/0.4 ML SYR SC SCH (08:00)
[2016-09-30] MEDS: SENNOSIDES/DOCUSATE SODIUM TAB PO SCH ×2 (08:00→20:52)
[2016-09-30] MEDS: DULoxetine 60 MG CAP PO SCH (08:01)
[2016-09-30] MEDS: clonazePAM 0.5 MG TAB PO SCH ×2 (08:01→20:50)
[2016-09-30] MEDS: CALCIUM CARB W/VIT D 500 MG TAB PO SCH ×3 (08:01→20:49)
[2016-09-30] MEDS: OLANZapine 10 MG TAB PO SCH (08:02)
[2016-09-30] MEDS: LISINOPRIL 10 MG TAB PO SCH (08:03)
[2016-09-30] MEDS: ASPIRIN EC 325 MG TAB PO SCH (08:04)
[2016-09-30] MEDS: FAMOTIDINE 20 MG TAB PO SCH ×2 (08:04→20:50)
[2016-09-30] MEDS: NICOTINE 21 MG/24 HR PATCH TD SCH (08:04)
[2016-09-30] MEDS: CYCLOBENZAPRINE 10 MG TAB PO PRN (08:08)
[2016-09-30] MEDS: HYDROmorphONE/DILAUDID 2 MG TAB PO PRN ×2 (08:08→13:51)
[2016-09-30] MEDS: LACTULOSE 20 GM/30 ML UDCUP PO SCH ×2 (08:14→20:50)
--- NOTE | 2016-09-30 09:59 | SOAPPROG ---
SOAP Progress Note Assessment/Plan: Assessment: Plan: Subjective: states his knee is sore dressing removed with incision C&D with decreased size to blisters compared to pre-op WBAT in brace PT for ambulation brace stays on at all times Objective: Vital Signs Temp Pulse Resp BP Pulse Ox 36.8 C 86 12 114/73 88 L 09/30/16 07:29 09/30/16 07:29 09/30/16 07:29 09/30/16 07:29 09/30/16 07:29 Laboratory Results 09/28/16 04:56 09/28/16 04:56 09/29/16 09/30/16 10/01/16 05:59 05:59 05:59 Intake Total 2125 350 Output Total 700 2525 300 Balance -700 -400 50 PT 13.3 SEC (12.0-15.0) 09/25/16 20:14 INR 1.02 (0.83-1.16) 09/25/16 20:14 ICD10 Worksheet Patient Problems: Problems Problem Status Onset Chronic hyponatremia Acute Left patella fracture Acute Traumatic brain injury Acute
[2016-09-30] MEDS: METHYL SALICYLATE TP SCH ×3 (10:56→20:51)
[2016-09-30] MEDS: MENTHOL TP SCH ×3 (10:56→20:51)
[2016-09-30] MEDS: SODIUM CL PO SCH ×2 (10:57→20:52)
[2016-09-30] MEDS: POTASSIUM CHLORIDE PO SCH ×2 (10:57→20:52)
--- NOTE | 2016-09-30 11:21 | HOSPPROG ---
Hospitalist Progress Note Assessment/Plan: 61y male PMH unspecified psychosis, tobacco abuse, htn, presents with mechanical fall 09/25/16. Found to have L patellar fx. First encounter, chart reviewed. # Transverse left patellar fracture s/p ORIF with Dr. Mac PT/OT and pain management # Hypertension, Improved/ back on home Lisinopril dose 114/73 # Chronic mental health disorder with psychosis, appears to be at his baseline will likely return to [place] cont home meds #Possible ileus patient having liquid loose stools abd xray shows no obstruction continue clears for now # acute hypoxemia patient doesn't want to mobilize & prefers being in bed will get a chest xray today for further evaluation # Chronic tobacco abuser with probably has COPD/hypoxia # hyponatremia, resolved with hydration/ will follow # urinary retention pt has needed to be straight cath multiple time back on home Flomax #constipation: bowel protocol very little response to mag citrate per nursing staff # DVT prophylaxis LMWH #Plan: get chest xray, spoke w patient and nursing staff to try and avoid narcotics if possible/repeat labs in a.m. Subjective: Omkar says his knee hurts and doesn't like to get up oob. Objective: Vital Signs Temp Pulse Resp BP Pulse Ox 36.8 C 68 18 114/73 88 L 09/30/16 07:29 09/30/16 10:20 09/30/16 10:20 09/30/16 07:29 09/30/16 07:29 Laboratory Results 09/28/16 04:56 09/28/16 04:56 09/29/16 09/30/16 10/01/16 05:59 05:59 05:59 Intake Total 2125 550 Output Total 700 2525 300 Balance -700 -400 250 PT 13.3 SEC (12.0-15.0) 09/25/16 20:14 INR 1.02 (0.83-1.16) 09/25/16 20:14 - Physical Exam Constitutional: chronically ill appearing, uncomfortable Eyes: PERRL Ears, Nose, Mouth, Throat: hearing normal Cardiovascular: regular rate and rhythym Respiratory: no respiratory distress, reduced air movement Gastrointestinal: other (nontender), No normoactive bowel sounds (hypoactive) Skin: warm, other (rash on his forehead area) Musculoskeletal: generalized weakness Psychiatric: interacting appropriately, not anxious, not encephalopathic ICD10 Worksheet Patient Problems: Problems Problem Status Onset Chronic hyponatremia Acute Left patella fracture Acute Traumatic brain injury Acute
[2016-09-30] MEDS: POLYETHYLENE GLYCOL 3350 17 GM PKT PO SCH (12:31)
[2016-09-30] MEDS: guaiFENesin 600 MG TAB.ER PO SCH ×2 (13:51→20:50)
[2016-09-30] MEDS: ACETAMINOPHEN 500 MG TAB PO SCH ×2 (15:56→20:48)
[2016-09-30] MEDS: carBAMazepine ER 200 MG CAP PO SCH (20:49)
[2016-09-30] MEDS: OMEGA-3 FATTY ACIDS 1,000 MG CAP PO SCH (20:52)
[2016-09-30] MEDS: TAMSULOSIN HCL 0.4 MG CAP PO SCH (20:52)
[2016-10-01] MEDS: IPRATROPIUM/ALBUTEROL 3 ML DEYVIAL IH SCH ×4 (00:13→17:06)
[2016-10-01] MEDS: traMADol 50 MG TAB PO SCH ×5 (00:15→23:04)
[2016-10-01 05:06] LABS: % IMMATURE GRANULYOCYTES 0.5 % (0.0-1.1); ABSOLUTE IMMATURE GRANULOCYTES 0.03 10^3/uL (0.00-0.10); ADD DIFF? NO; ADD MORPH? NO; ADD SCAN? NO; ATYPICAL LYMPHOCYTE FLAG 0 (0-99); FRAGMENT RBC FLAG 0 (0-99); HEMATOCRIT 32.1 % (40.0-51.0); HEMOGLOBIN 10.8 g/dL (13.7-17.5); LEFT SHIFT FLG 0 (0-99); LIPEMIA HEMOLYSIS FLAG 80 (0-99); MEAN CELL HEMOGLOBIN 30.3 pg (27.9-34.1); MEAN CELL HEMOGLOBIN CONCENTR. 33.6 g/dL (32.4-36.7); MEAN CELL VOLUME 90.2 fL (81.5-99.8); MEAN PLATELET VOLUME 9.3 fL (8.7-11.7); PLATELET CLUMPS FLAG 20 (0-99); PLATELET COUNT 161 10^3/uL (150-400); RED BLOOD CELL COUNT 3.56 10^6/uL (4.40-6.38); RED CELL DISTRIBUTION WIDTH 11.9 % (11.5-15.2)
[2016-10-01 06:35] LABS: ALANINE AMINOTRANSFERASE 22 IU/L (21-72); ALKALINE PHOSPHATASE 56 IU/L (38-126); ANION GAP 9 mEq/L (8-16); ASPARTATE AMINOTRANSFERASE 24 IU/L (17-59); BILIRUBIN,TOTAL 0.9 mg/dL (0.1-1.4); CALCIUM 8.7 mg/dL (8.5-10.4); CARBON DIOXIDE 24 mEq/l (22-31); CHLORIDE 89 mEq/L (97-110); CREATININE 0.6 mg/dL (0.7-1.3); GLOMERULAR FILTRATION RATE > 60; GLUCOSE 98 mg/dL (70-100); POTASSIUM 4.1 mEq/L (3.5-5.2); SODIUM 122 mEq/L (134-144); TOTAL PROTEIN 5.6 g/dL (6.3-8.2)
[2016-10-01] MEDS: ENOXAPARIN 40 MG/0.4 ML SYR SC SCH (08:01)
[2016-10-01] MEDS: SENNOSIDES/DOCUSATE SODIUM TAB PO SCH ×2 (08:02→21:06)
[2016-10-01] MEDS: MENTHOL TP SCH ×3 (08:03→23:08)
[2016-10-01] MEDS: METHYL SALICYLATE TP SCH ×3 (08:03→23:08)
[2016-10-01] MEDS: ACETAMINOPHEN 500 MG TAB PO SCH ×3 (08:04→21:11)
[2016-10-01] MEDS: POTASSIUM CHLORIDE PO SCH ×2 (08:04→23:08)
[2016-10-01] MEDS: SODIUM CL PO SCH ×2 (08:04→23:08)
[2016-10-01] MEDS: clonazePAM 0.5 MG TAB PO SCH ×2 (08:05→21:06)
[2016-10-01] MEDS: MAGNESIUM HYDROXIDE 30 ML UDCUP PO PRN (08:05)
[2016-10-01] MEDS: LACTULOSE 20 GM/30 ML UDCUP PO SCH ×2 (08:15→21:06)
[2016-10-01] MEDS: guaiFENesin 600 MG TAB.ER PO SCH ×2 (08:16→21:04)
[2016-10-01] MEDS: NICOTINE 21 MG/24 HR PATCH TD SCH (08:16)
[2016-10-01] MEDS: DULoxetine 60 MG CAP PO SCH (08:16)
[2016-10-01] MEDS: CYCLOBENZAPRINE 10 MG TAB PO PRN ×2 (08:17→18:16)
[2016-10-01] MEDS: FAMOTIDINE 20 MG TAB PO SCH ×2 (08:17→21:05)
[2016-10-01] MEDS: POLYETHYLENE GLYCOL 3350 17 GM PKT PO SCH (08:17)
[2016-10-01] MEDS: OLANZapine 10 MG TAB PO SCH (08:18)
[2016-10-01] MEDS: LISINOPRIL 10 MG TAB PO SCH (08:18)
[2016-10-01] MEDS: HYDROmorphONE/DILAUDID 2 MG TAB PO PRN ×2 (08:19→14:24)
[2016-10-01] MEDS: CALCIUM CARB W/VIT D 500 MG TAB PO SCH ×3 (08:20→21:11)
[2016-10-01] MEDS: ASPIRIN EC 325 MG TAB PO SCH (08:20)
[2016-10-01] MEDS ORDERED: POLYETHYLENE GLYCOL 3350 17 GM PKT PO SCH (09:00)
[2016-10-01] MEDS ORDERED: NS 1,000 ML IV SCH (12:15)
[2016-10-01] MEDS: BISACODYL 10 MG SUPP PR PRN (12:20)
--- NOTE | 2016-10-01 13:04 | HOSPPROG ---
Hospitalist Progress Note Assessment/Plan: 61y male PMH unspecified psychosis, tobacco abuse, htn, presents with mechanical fall 09/25/16. Found to have L patellar fx. # Transverse left patellar fracture s/p ORIF with Dr. Mac PT/OT and pain management # Hypertension, Lisinopril elevated this morning # Chronic mental health disorder with psychosis, appears to be at his baseline will likely return to [place] cont home meds # ileus patient having liquid loose stools abd xray shows no obstruction but some moderate amount of stool has good bowel sounds/trial of soft diet # acute hypoxemia patient doesn't want to mobilize & prefers being in bed chest xray shows no infectious etiology/ atelectasis and mucus plugging nebs added # Chronic tobacco abuser with probably has COPD/hypoxia # hyponatremia, Na down to 122/ urine Na low/ will give a liter of normal saline recheck in a.m. # urinary retention pt has needed to be straight cath multiple time back on home Flomax #severe constipation: bowel protocol very little response to mag citrate per nursing staff reviewed my concern w Dr Webster. will do a trial of mag citrate again w suppository he doesn't want to get oob and explained to him if he mobilizes, this will help him with a bowel movement # DVT prophylaxis LMWH #Plan: will give normal saline x one bag, recheck labs in a.m., trial of light diet, mag citrate Subjective: Omkar has no abominal pain. Objective: Vital Signs Temp Pulse Resp BP Pulse Ox 36.5 C 72 16 175/97 H 94 10/01/16 08:00 10/01/16 11:15 10/01/16 11:15 10/01/16 08:18 10/01/16 11:15 Laboratory Results 10/01/16 05:01 10/01/16 05:01 09/30/16 10/01/16 10/02/16 05:59 05:59 05:59 Intake Total 2125 1000 500 Output Total 2525 750 1100 Balance -400 250 -600 PT 13.3 SEC (12.0-15.0) 09/25/16 20:14 INR 1.02 (0.83-1.16) 09/25/16 20:14 - Physical Exam Constitutional: chronically ill appearing, uncomfortable Eyes: PERRL Ears, Nose, Mouth, Throat: hard of hearing Cardiovascular: regular rate and rhythym Respiratory: no respiratory distress Gastrointestinal: normoactive bowel sounds, distension, No tenderness Skin: warm, other (rash on forehead area) Musculoskeletal: generalized weakness Psychiatric: interacting appropriately, poor insight, poor judgement ICD10 Worksheet Patient Problems: Problems Problem Status Onset Chronic hyponatremia Acute Left patella fracture Acute Traumatic brain injury Acute
[2016-10-01] MEDS ORDERED: MAGNESIUM CITRATE 300 ML BOTTLE PO ONE (15:30)
[2016-10-01] MEDS: hydrALAZINE 25 MG TAB PO PRN (15:43)
[2016-10-01] MEDS: oxyCODONE IR 5 MG TAB PO PRN (19:35)
[2016-10-01] MEDS: OMEGA-3 FATTY ACIDS 1,000 MG CAP PO SCH (21:01)
[2016-10-01] MEDS: carBAMazepine ER 200 MG CAP PO SCH (21:04)
[2016-10-01] MEDS: TAMSULOSIN HCL 0.4 MG CAP PO SCH (21:05)
[2016-10-01 21:17] LABS: ANION GAP 6 mEq/L (8-16); CALCIUM 9.2 mg/dL (8.5-10.4); CARBON DIOXIDE 29 mEq/l (22-31); CHLORIDE 88 mEq/L (97-110); CREATININE 0.5 mg/dL (0.7-1.3); GLOMERULAR FILTRATION RATE > 60; GLUCOSE 111 mg/dL (70-100); POTASSIUM 4.1 mEq/L (3.5-5.2); SODIUM 123 mEq/L (134-144)
[2016-10-02] MEDS: IPRATROPIUM/ALBUTEROL 3 ML DEYVIAL IH SCH ×4 (00:32→17:00)
[2016-10-02] MEDS: CYCLOBENZAPRINE 10 MG TAB PO PRN (04:29)
[2016-10-02] MEDS: HYDROmorphONE/DILAUDID 2 MG TAB PO PRN ×2 (04:52→08:42)
[2016-10-02 05:30] LABS: ALANINE AMINOTRANSFERASE 37 IU/L (21-72); ALBUMIN 3.2 g/dL (3.5-5.0); ALKALINE PHOSPHATASE 62 IU/L (38-126); ANION GAP 9 mEq/L (8-16); ASPARTATE AMINOTRANSFERASE 34 IU/L (17-59); BILIRUBIN,TOTAL 0.8 mg/dL (0.1-1.4); CARBON DIOXIDE 30 mEq/l (22-31); CHLORIDE 90 mEq/L (97-110); CREATININE 0.5 mg/dL (0.7-1.3); GLOMERULAR FILTRATION RATE > 60; GLUCOSE 105 mg/dL (70-100); POTASSIUM 3.7 mEq/L (3.5-5.2); SODIUM 129 mEq/L (134-144); TOTAL PROTEIN 5.6 g/dL (6.3-8.2)
[2016-10-02] MEDS: traMADol 50 MG TAB PO SCH ×3 (06:12→18:07)
[2016-10-02] MEDS: ENOXAPARIN 40 MG/0.4 ML SYR SC SCH (09:01)
[2016-10-02] MEDS: OLANZapine 10 MG TAB PO SCH (09:01)
[2016-10-02] MEDS: PROPRANOLOL SR 80 MG CAP PO SCH (09:01)
[2016-10-02] MEDS: guaiFENesin 600 MG TAB.ER PO SCH ×2 (09:01→21:46)
[2016-10-02] MEDS: DULoxetine 60 MG CAP PO SCH (09:02)
[2016-10-02] MEDS: clonazePAM 0.5 MG TAB PO SCH ×2 (09:02→21:45)
[2016-10-02] MEDS: CALCIUM CARB W/VIT D 500 MG TAB PO SCH ×3 (09:02→21:46)
[2016-10-02] MEDS: ACETAMINOPHEN 500 MG TAB PO SCH (09:02)
[2016-10-02] MEDS: ASPIRIN EC 325 MG TAB PO SCH (09:02)
[2016-10-02] MEDS: FAMOTIDINE 20 MG TAB PO SCH ×2 (09:02→21:45)
[2016-10-02] MEDS: LISINOPRIL 10 MG TAB PO SCH (09:02)
[2016-10-02] MEDS: MENTHOL TP SCH ×3 (09:03→23:50)
[2016-10-02] MEDS: LACTULOSE 20 GM/30 ML UDCUP PO SCH ×2 (09:03→23:57)
[2016-10-02] MEDS: POLYETHYLENE GLYCOL 3350 17 GM PKT PO SCH (09:03)
[2016-10-02] MEDS: METHYL SALICYLATE TP SCH ×3 (09:03→23:50)
[2016-10-02] MEDS: POTASSIUM CHLORIDE PO SCH ×2 (09:04→23:50)
[2016-10-02] MEDS: SENNOSIDES/DOCUSATE SODIUM TAB PO SCH ×2 (09:04→21:46)
[2016-10-02] MEDS: SODIUM CL PO SCH ×2 (09:04→23:50)
[2016-10-02] MEDS: NICOTINE 21 MG/24 HR PATCH TD SCH (10:24)
[2016-10-02] MEDS ORDERED: POLYETHYLENE GLYCOL 3350 17 GM PKT PO PRN (13:56)
--- NOTE | 2016-10-02 13:58 | HOSPPROG ---
Hospitalist Progress Note Assessment/Plan: # Transverse left patellar fracture s/p ORIF with Dr. Mac after a mechanical fall PT/OT and pain management care plan revwd with Dr Mac, OK to discharge with brace, FU in office in 1 week # Hypertension, Lisinopril stable # Chronic mental health disorder with psychosis, appears to be at his baseline will return to [place], informed case management re likely dc in AM if bowels OK cont home meds # ileus, resolving patient having liquid loose stools advance diet, hold bowel regimen # acute hypoxemia patient doesn't want to mobilize & prefers being in bed, but is at least in chair today chest xray showed no infectious etiology- +atelectasis and mucous plugging, incentive spirometry nebs added, has been on O2 since admission, will need O2 at [place] # Chronic tobacco abuser with probably has COPD/hypoxia nebs- see above # hyponatremia, improving, check in AM # urinary retention Flomax restarted check bladder scans #severe constipation: bowel protocol see above, has had lots of stools now needs to have a 'normal BM' prior to discharge to [place] # DVT prophylaxis LMWH Dispo- possible discharge in AM if bowels OK Subjective: Says feels well, wants to go home. Has had some loose stools. Hungry. Says pain OK with meds. Objective: Vital Signs Temp Pulse Resp BP Pulse Ox 98.1 F 94 16 123/69 H 90 L 10/02/16 07:38 10/02/16 07:38 10/02/16 07:38 10/02/16 07:38 10/02/16 09:45 Laboratory Results 10/01/16 05:01 10/02/16 05:02 10/01/16 10/02/16 10/03/16 11:59 11:59 11:59 Intake Total 950 250 Output Total 1050 3650 Balance -100 -3400 PT 13.3 SEC (12.0-15.0) 09/25/16 20:14 INR 1.02 (0.83-1.16) 09/25/16 20:14 - Physical Exam Constitutional: no apparent distress, appears nourished, not in pain, obese Eyes: anicteric sclera, EOMI Ears, Nose, Mouth, Throat: moist mucous membranes, hearing normal Cardiovascular: regular rate and rhythym, no murmur, rub, or gallop Respiratory: no respiratory distress, no rales or rhonchi, clear to auscultation Gastrointestinal: normoactive bowel sounds, soft, non-tender abdomen, no palpable masses, No guarding, No rebound Musculoskeletal: other (L knee in brace with dressing intact) Psychiatric: not anxious, not encephalopathic, anxious ICD10 Worksheet Patient Problems: Problems Problem Status Onset Chronic hyponatremia Acute Left patella fracture Acute Traumatic brain injury Acute
[2016-10-02] MEDS: oxyCODONE IR 5 MG TAB PO PRN ×2 (14:16→21:43)
[2016-10-02] MEDS: carBAMazepine ER 200 MG CAP PO SCH (21:44)
[2016-10-02] MEDS: OMEGA-3 FATTY ACIDS 1,000 MG CAP PO SCH (21:45)
[2016-10-02] MEDS: TAMSULOSIN HCL 0.4 MG CAP PO SCH (21:45)
[2016-10-03 00:32] VITALS: TEMP 98
[2016-10-03] MEDS: traMADol 50 MG TAB PO SCH ×3 (02:15→12:44)
[2016-10-03] MEDS: IPRATROPIUM/ALBUTEROL 3 ML DEYVIAL IH SCH ×3 (02:20→11:56)
[2016-10-03 05:13] LABS: % IMMATURE GRANULYOCYTES 0.5 % (0.0-1.1); ABSOLUTE IMMATURE GRANULOCYTES 0.04 10^3/uL (0.00-0.10); ADD DIFF? NO; ADD MORPH? NO; ADD SCAN? NO; ATYPICAL LYMPHOCYTE FLAG 10 (0-99); FRAGMENT RBC FLAG 0 (0-99); HEMATOCRIT 30.6 % (40.0-51.0); HEMOGLOBIN 10.3 g/dL (13.7-17.5); LEFT SHIFT FLG 0 (0-99); LIPEMIA HEMOLYSIS FLAG 80 (0-99); MEAN CELL HEMOGLOBIN 30.7 pg (27.9-34.1); MEAN CELL HEMOGLOBIN CONCENTR. 33.7 g/dL (32.4-36.7); MEAN CELL VOLUME 91.1 fL (81.5-99.8); MEAN PLATELET VOLUME 9.3 fL (8.7-11.7); PLATELET CLUMPS FLAG 0 (0-99); PLATELET COUNT 207 10^3/uL (150-400); RED BLOOD CELL COUNT 3.36 10^6/uL (4.40-6.38); RED CELL DISTRIBUTION WIDTH 12.1 % (11.5-15.2)
[2016-10-03 05:28] LABS: ANION GAP 7 mEq/L (8-16); CARBON DIOXIDE 29 mEq/l (22-31); CHLORIDE 91 mEq/L (97-110); CREATININE 0.6 mg/dL (0.7-1.3); GLOMERULAR FILTRATION RATE > 60; GLUCOSE 92 mg/dL (70-100); POTASSIUM 4.4 mEq/L (3.5-5.2); SODIUM 127 mEq/L (134-144)
[2016-10-03] MEDS: guaiFENesin 600 MG TAB.ER PO SCH (08:41)
[2016-10-03] MEDS: CALCIUM CARB W/VIT D 500 MG TAB PO SCH (08:42)
[2016-10-03] MEDS: SENNOSIDES/DOCUSATE SODIUM TAB PO SCH (08:42)
[2016-10-03] MEDS: FAMOTIDINE 20 MG TAB PO SCH (08:43)
[2016-10-03] MEDS: OLANZapine 10 MG TAB PO SCH (08:43)
[2016-10-03] MEDS: clonazePAM 0.5 MG TAB PO SCH (08:43)
[2016-10-03] MEDS: DULoxetine 60 MG CAP PO SCH (08:43)
[2016-10-03] MEDS: LISINOPRIL 10 MG TAB PO SCH (08:45)
[2016-10-03] MEDS: PROPRANOLOL SR 80 MG CAP PO SCH (08:46)
--- NOTE | 2016-10-03 08:50 | WOCRNPDOC ---
WOCRN Advanced Assessment Note - Skin Integrity Problem, Advanced Assess Left Knee Dressing Type: Open to Air Closure Description: Steri Strips, Approximated Exudate Amount: Scant Exudate Color: Brown Exudate Characteristic(s): Dried Dylan Wound Tissue: Ecchymotic, Swollen Dylan Wound Swelling: Moderate Wound Bed Constitution: Scab Site Odor: None Site Measurement - Head-to-Toe Length X Width X Depth (cm): 13cm in length, 0.1 cm across, well-approximated. Skin Integrity Problem Comment: Incision on L knee w/ partially intact steri- strips, well-approximated at this time. Dried exudate noted along length of incision, but nothing expressed when surrounding tissue palpated. There is moderate swelling and ecchymosis throughout the surrounding tissues. Some erythema dylan-wound, though not well-defined. line service attendantLUNA Alfaro reported that patient was observed picking at the wound and the steri-strips. Recommend cleansing site, applying fresh steri-strips to proximal aspect, and covering site w/ dry, protective dressing to prevent patient from touching/picking. Please reconsult wound care if additional issues develop, or if dehiscence noted.
[2016-10-03] MEDS: oxyCODONE IR 5 MG TAB PO PRN ×2 (08:55→11:02)
[2016-10-03] MEDS: NICOTINE 21 MG/24 HR PATCH TD SCH (08:56)
[2016-10-03] MEDS: ENOXAPARIN 40 MG/0.4 ML SYR SC SCH (08:58)
[2016-10-03 09:00] VITALS: BP 129/82
[2016-10-03] MEDS: MENTHOL TP SCH (09:09)
[2016-10-03] MEDS: METHYL SALICYLATE TP SCH (09:09)
[2016-10-03] MEDS: SODIUM CL PO SCH (09:10)
[2016-10-03] MEDS: POTASSIUM CHLORIDE PO SCH (09:10)
[2016-10-03] MEDS: LACTULOSE 20 GM/30 ML UDCUP PO SCH (09:12)
--- NOTE | 2016-10-03 11:40 | PDIAF ---
- Diagnosis Diagnosis: patella fx Code Status: Full Code - Medication Management Discharge Medications: Medications to Continue on Transfer Calcium Carb W/Vit D [Calcium Carb W/Vit D 500/200 (*)] 500 mg PO TID 09/25/16 [ Last Taken 09/25/16] DULoxetine [Cymbalta 60 MG (*)] 60 mg PO DAILY 09/25/16 [Last Taken 09/25/16] Ergocalciferol [Vitamin D2 (*)] 50,000 unit PO Q30D 09/25/16 [Last Taken ] Lisinopril [Zestril 10 mg (*)] 10 mg PO DAILY 09/25/16 [Last Taken 09/25/16] OLANZapine [Zyprexa] 15 mg PO DAILY 09/25/16 [Last Taken 09/25/16] [place]-3 Fatty Acids [Fish Oil 1000 mg (*)] 2,000 mg PO HS 09/25/16 [Last Taken 09/24/16] Propranolol HCl [Inderal Xl] 80 mg PO DAILY 09/25/16 [Last Taken 09/25/16] Sennosides/Docusate Sodium [Senna-Docusate Sodium Tablet] 2 each PO BID [Last Taken 09/25/16] Sodium Cl/Potassium Chloride [THERMOTABS TABLET] 1 each PO BID 09/25/16 [Last Taken 09/25/16] Tamsulosin HCl [Flomax 0.4 MG (*)] 0.4 mg PO HS 09/25/16 [Last Taken 09/24/16] carBAMazepine ER [Carbatrol (*)] 200 mg PO HS 09/25/16 [Last Taken 09/24/16] clonazePAM [Klonopin (*)] 0.5 mg PO BID 09/25/16 [Last Taken 09/25/16 09:00] Albuterol [Proventil Neb] 3 ml IH Q2HRS PRN #0 deyvial 10/03/16 [Last Taken Unknown] Enoxaparin [Lovenox 40 MG (*)] 40 mg SC DAILY syr 10/03/16 [Last Taken Unknown] Famotidine [Pepcid 20 MG (*)] 20 mg PO BID tab 10/03/16 [Last Taken Unknown] HYDROmorphone HCL [Dilaudid 2 mg (*)] 2 mg PO Q4HRS PRN #0 tab 10/03/16 [Last Taken Unknown] Ipratropium/Albuterol [Duoneb (*)] 3 ml IH Q6HRS deyvial 10/03/16 [Last Taken Unknown] Nicotine [Nicoderm Cq 21 mg (*)] 21 mg TD DAILY patch 10/03/16 [Last Taken Unknown] guaiFENesin [Mucinex 600 MG (*)] 1,200 mg PO BID tab.er 10/03/16 [Last Taken Unknown] hydrALAZINE [Apresoline] 25 mg PO QID PRN #0 tab 10/03/16 [Last Taken Unknown] oxyCODONE IR [Oxycodone Ir (*)] 5 - 10 mg PO Q3HRS PRN #0 tab 10/03/16 [Last Taken Unknown] traMADol [Ultram 50 mg (*)] 50 mg PO Q6HRS tab 10/03/16 [Last Taken Unknown] Discharge Medications: Refer to the Discharge Home Medication list for PRN reason. PICC Care - Routine: N/A - Orders Services needed: Registered Nurse, Physical Therapy, Occupational Therapy Diet Recommendation: fluid restriction (use comment for amount) Diet Texture: Regular Texture Diet Pérez: No Additional: bladder scan Q8, cath if >650ml - Labs/Radiology BMP Date: 10/06/16 - Follow Up Care Current Providers and Referrals: Patient,NotPresent [Unknown] - As per Instructions Tiffani Mac MD [Medical Doctor] - follow up in 1 week
[2016-10-03 12:07] VITALS: PULSE 69; RESP 16; O2SAT 92
--- NOTE | 2016-10-03 13:43 | GDS ---
[f rep st] DISCHARGE SUMMARY DISCHARGE DIAGNOSES: 1. Urinary retention. 2. Transverse left patellar fracture. 3. Hypertension. 4. Chronic mental health disorder. 5. Ileus. 6. Acute hypoxemia. 7. Chronic tobacco abuse. 8. Hyponatremia. 9. Constipation. CONSULTATIONS: Dr. Mac of Orthopedics. PHYSICAL EXAM: GENERAL: The patient is alert. VITAL SIGNS: Afebrile at 36.7, pulse is 69, respir atory rate 16, blood pressure is 129/82, he is saturating 90% on 2 L. I have seen and evaluated the patient on the day of discharge. HOSPITAL COURSE: The patient is a 61-year-old male, who resides at [facility], suffered a mechanica l fall. He was admitted for: 1. Left patellar fracture. During this hospitalization, Dr. Mac consulted on the patient. Surgic al intervention was performed. He will be discharged with a brace and follow up in Dr. Mac' office in 1 week. 2. Hypertension. This appears to be stable and is managed with lisinopril. 3. Chronic mental health disorder. The patient is at his baseline mentation. 4. Ileus. This is resolving. 5. Acute hypoxemia, likely secondary to atelectasis. The patient has little motivation to get out of bed and be ambulatory. He has been placed on Mucinex as well as nebulizing treatments. 6. Chronic tobacco abuser. This is stable. 7. Hyponatremia. This is a chronic condition and stable at time of disposition. 8. Urinary retention. The patient has been reinitiated on his Flomax, he will continue this in the outpatient setting, as well as bladder scanning every 8 hours. He will continue straight catheteri zation as needed and follow up with the urologist. 9. Constipation. This has resolved. 10. Disposition: The patient will be discharged to return to [facility] where he normally resides. There are no pending studies. DISCHARGE MEDICATIONS: Please refer to EMR form. The patient's previous home medications have been adjusted. DISCHARGE INSTRUCTIONS: He is to wear brace at all times. Followup will be with his primary care naresh cuba, as well as Dr. Mac in 1 week. I spent greater than 35 minutes in the care, coordination, and management of the patient's dispositi on. /[id number]/MODL
[2016-10-12] MEDS ORDERED: ERGOCALCIFEROL 50,000 I.UNIT CAP PO SCH (08:00)
== END 2016-10-03 15:53 | DRG 516 ==
LOC: EDUNIT# → F3N 22:50
PROVIDERS: ADMIT Internal Medicine; ATTEND Internal Medicine
PROC: 0QSF04Z Reposition Left Patella with Internal Fixation Device, Open Approach (ICD-10-PCS; principal; 2016-09-26 17:00)
DX: S82.032A Displaced transverse fracture of left patella, initial encounter for closed fracture (principal); W01.0XXA Fall on same level from slipping, tripping and stumbling without subsequent striking against object, initial encounter; Y92.129 Unspecified place in nursing home as the place of occurrence of the external cause; Y99.8 Other external cause status; I10 Essential (primary) hypertension; E87.1 Hypo-osmolality and hyponatremia; N40.1 Benign prostatic hyperplasia with lower urinary tract symptoms; R33.9 Retention of urine, unspecified; Z87.820 Personal history of traumatic brain injury; F06.8 Other specified mental disorders due to known physiological condition; R56.1 Post traumatic seizures; J44.9 Chronic obstructive pulmonary disease, unspecified; R09.02 Hypoxemia; F17.210 Nicotine dependence, cigarettes, uncomplicated; K59.00 Constipation, unspecified
CPT/HCPCS: 97116-GP; 97162-GP; 97165-GO; 97530-GP; C1713; G8978-GP-CK; G8979-GP-CI; G8979-GP-CK; G8980-GP-CM; G8987-GO-CL; G8988-GO-CL; G8989-GO-CL; J0690; J1170; J1650; J2405; J2704; J3010; L1830; L1832